=== PATIENT | female | born 1990 | race Caucasian/White ===

== ENCOUNTER 2016-09-17 16:06 | Emergency (ER) | payer OTHER ==
[~2016-09-17] VITALS: Ht 157.4 cm; Wt 52.2 kg
[~2016-09-17 16:06] MED LIST: AMBIEN10 M1 PO; AMOXICILLIN500 M2 PO; AMOXICILLIN500 MG PO; AMOXICILLIN875 MG PO; AMOXIL500 MG PO; ATIVAN1 MG PO; AUGMENTIN 875875 MG PO; BACTRIM DS 8001 TA1 PO; BUTORPHANOL10 MG/ML NAS; CIPRO500 MG PO; CLARITIN-D 12 H1 TAB PO; CLARITIN10 MG PO; CLINDAMYCIN HC300 MG PO; DIFLUCAN150 MG PO; DIPHENHYDR12.5 MG/5 PO; FLAGYL500 MG PO; FLEXERIL10 MG PO; FLONASE 0.05% 121 EA NAS; FLONASE ALLERG9.9 ML NAS; HYDROCODONE BIT1 T11 PO; KEFLEX500 MG PO; KENALOG0.1% TP; LEVOFLOXACIN500 MG PO; LIDOCAINE VISC100 ML MM; MACROBID100 M1 PO; MOTRIN600 MG PO; MOTRIN800 MG PO; NAPROSYN500 MG PO; NORCO 325 MG-51 TAB PO; NYSTATIN100000 U/M PO; OXYCODONE5 M1 PO; PAIN MED; PENICILLIN VK500 MG PO; PERIDEX118 ML MM; PHENERGAN25 M1 PO; PREDNISONE10 MG PO; PYRIDIUM200 MG PO; Peridex 473 ML473 ML PO; ROBAXIN750 MG PO; ROBITUSSIN AC 110 ML PO; SEPTRA DS 800 M1 TAB PO; STADOL INH; STADOL NAS; STADOL NS10 MG/ML NAS; SUBOXONE 8 MG-1 EACH SL; SUDAFED60 MG PO; TRAMADOL HCL50 MG PO; TRAMADOL50 MG PO; VENTOLIN H0.09 MG/AC INH; VICODIN ES 7501 TAB PO; ZITHROMAX Z PA250 MG PO; ZOFRAN ODT4 MG SL; ZOFRAN4 MG PO; ZYRTEC10 MG PO; Zofran4 MG PO
[2016-09-17] MEDS ORDERED: Peridex 473 ML473 ML PO (17:02)
[2016-09-17] MEDS ORDERED: LIDOCAINE VISC100 ML MM (17:02)
[2016-09-17] MEDS ORDERED: PENICILLIN-VK500 MG PO (17:02)
[2016-09-17] MEDS ORDERED: Motrin,Rufen800 MG PO (17:02)
== END 2016-09-17 17:17 | disposition home or self-care (01) ==
LOC: ED 16:06
DX: K08.89 Other specified disorders of teeth and supporting structures (principal); F17.200 Nicotine dependence, unspecified, uncomplicated

== ENCOUNTER 2016-10-13 12:36 | Emergency (ER) | payer OTHER ==
[~2016-10-13] VITALS: Ht 157.4 cm; Wt 52.2 kg
[~2016-10-13 12:36] MED LIST changes: +Motrin,Rufen800 MG PO; +PENICILLIN-VK500 MG PO
[2016-10-13] MEDS ORDERED: ROBITUSSIN AC 110 ML PO (13:01)
[2016-10-13] MEDS ORDERED: CLARITIN10 MG PO (13:01)
[2016-10-13] MEDS ORDERED: FLONASE ALLERG9.9 ML NAS (13:01)
[2016-10-13] MEDS ORDERED: PREDNISONE10 MG PO (13:01)
== END 2016-10-13 13:48 | disposition home or self-care (01) ==
LOC: ED 12:36
DX: B34.9 Viral infection, unspecified (principal); G43.909 Migraine, unspecified, not intractable, without status migrainosus; F17.200 Nicotine dependence, unspecified, uncomplicated; Z79.899 Other long term (current) drug therapy

== ENCOUNTER → 2016-10-23 | Outpatient (CLI) | payer OTHER ==
[2016-10-23 18:36] LABS: URINE AMPHETAMINES < 1000 (1000ng/ml); URINE BARBITURATES < 200 (200ng/ml); URINE COCAINE < 300 (300ng/ml)
== END | disposition home or self-care (01) ==
LOC: LAB 17:58
PROVIDERS: Internal Medicine
DX: F11.20 Opioid dependence, uncomplicated (principal)

== ENCOUNTER → 2016-10-29 | Emergency (ER) | payer OTHER | LOC: ED 16:22 | DX: R51 Headache (principal); Z53.21 Procedure and treatment not carried out due to patient leaving prior to being seen by health care provider ==

== ENCOUNTER 2016-12-26 15:33 | Emergency (ER) | payer OTHER ==
[~2016-12-26] VITALS: Ht 157.4 cm; Wt 52.6 kg
== END 2016-12-26 16:39 | disposition left against medical advice (07) ==
LOC: ED 15:33
DX: R10.32 Left lower quadrant pain (principal); G43.909 Migraine, unspecified, not intractable, without status migrainosus; Z79.899 Other long term (current) drug therapy

== ENCOUNTER 2017-07-23 14:31 | Emergency (ER) | payer OTHER ==
[~2017-07-23] VITALS: Ht 157.4 cm; Wt 52.2 kg
[2017-07-23 15:20] LABS: BASO % 0.3 % (0.0-1.0); HEMATOCRIT 38.8 % (37.0-47.0); HEMOGLOBIN 13.6 g/dl (12.0-16.0); LYMPH # 1.2 10*3/uL (1.3-4.4); LYMPH % 10.7 % (27.0-41.0); MEAN CORPUSCULAR HGB 31.2 pg (27.0-31.0); MEAN CORPUSCULAR HGB CONC 35.1 g/dl (33.0-37.0); MEAN PLATELET VOLUME 10.1 fl (9.6-12.3); MONO # 0.7 10*3/uL (0.1-1.0); MONO % 6.1 % (3.0-9.0); NEUT % 82.6 % (47.0-73.0); PLATELET COUNT AUTOMATED 289 10*3/uL (130-400); RED BLOOD COUNT 4.36 10*6/uL (4.10-5.10); RED CELL DISTRI WIDTH 12.3 % (0-14.5); WHITE BLOOD COUNT 10.9 10*3/uL (4.8-10.8)
[2017-07-23 15:41] LABS: ALBUMIN 4.7 gm/dl (3.1-4.5); ALKALINE PHOSPHATASE 68 U/L (45-117); BUN 15 mg/dl (7-24); CHLORIDE 101 mmol/L (98-107); CREATININE 0.81 mg/dL (0.55-1.02); LIPASE 75 U/L (73-393); POTASSIUM 3.1 mmol/L (3.5-5.1); SGOT/AST 10 IU/L (3-35); SGPT/ALT 17 U/L (12-78); SODIUM 136 mmol/L (136-145); TOTAL PROTEIN 8.2 gm/dL (6.4-8.2)
[2017-07-23] MEDS ORDERED: ZOFRAN ODT4 MG SL (17:30)
== END 2017-07-23 17:37 | disposition home or self-care (01) ==
LOC: ED 14:31
PROVIDERS: Physician Assistant
DX: K52.9 Noninfective gastroenteritis and colitis, unspecified (principal); F17.200 Nicotine dependence, unspecified, uncomplicated

== ENCOUNTER → 2017-07-26 | Outpatient (CLI) | payer OTHER ==
[2017-07-26 14:12] LABS: URINE AMPHETAMINES < 1000 (1000ng/ml); URINE BARBITURATES < 200 (200ng/ml); URINE BENZODIAZEPINES < 200 (200ng/ml); URINE CANNABINOIDS (THC) > 50 (50ng/ml); URINE COCAINE < 300 (300ng/ml); URINE METHADONE < 300 (300ng/ml); URINE OPIATES < 300 (300ng/ml)
[2017-07-26 14:14] LABS: URINE PHENCYCLIDINE < 25 (25ng/ml)
== END | disposition home or self-care (01) ==
LOC: LAB 13:40
PROVIDERS: Internal Medicine
DX: F11.20 Opioid dependence, uncomplicated (principal)

== ENCOUNTER → 2017-11-08 | Outpatient (CLI) | payer OTHER ==
[2017-11-08 17:08] LABS: URINE AMPHETAMINES < 1000 (1000ng/ml); URINE BARBITURATES < 200 (200ng/ml); URINE BENZODIAZEPINES < 200 (200ng/ml); URINE CANNABINOIDS (THC) > 50 (50ng/ml); URINE COCAINE < 300 (300ng/ml); URINE METHADONE < 300 (300ng/ml); URINE OPIATES < 300 (300ng/ml); URINE PHENCYCLIDINE < 25 (25ng/ml)
== END | disposition home or self-care (01) ==
LOC: LAB 16:28
PROVIDERS: Internal Medicine
DX: F11.20 Opioid dependence, uncomplicated (principal)

== ENCOUNTER 2018-01-16 19:59 | Emergency (ER) | payer OTHER ==
[~2018-01-16] VITALS: Ht 157.4 cm; Wt 45.4 kg
[2018-01-16 20:23] LABS: BILIRUBIN NEGATIVE (NEGATIVE); BLOOD NEGATIVE (NEGATIVE); CLARITY SL CLOUDY (CLEAR); COLOR YELLOW (YELLOW); GLUCOSE NEGATIVE (NEGATIVE); KETONE 2+ (NEGATIVE); LEUKO ESTERASE NEGATIVE (NEGATIVE); NITRITE NEGATIVE (NEGATIVE); SPECIFIC GRAVITY 1.015 (1.005-1.030); UROBILINOGEN 0.2 E.U./dl (0.2-1.0)
[2018-01-16 20:42] LABS: BACTERIA TRACE; WBC 0-2 wbc/hpf (0-5)
== END 2018-01-16 23:32 | disposition home or self-care (01) ==
LOC: ED 19:59
PROVIDERS: Nurse Practitioner
DX: B37.9 Candidiasis, unspecified (principal); N89.8 Other specified noninflammatory disorders of vagina; F17.200 Nicotine dependence, unspecified, uncomplicated; Z79.899 Other long term (current) drug therapy

== ENCOUNTER 2018-08-07 15:08 | Emergency (ER) | payer SELFPAY ==
[~2018-08-07] VITALS: Ht 157.4 cm; Wt 45.4 kg
[2018-08-07] MEDS ORDERED: ZITHROMAX250 MG PO ×2 (16:07→16:14)
== END 2018-08-07 16:17 | disposition home or self-care (01) ==
LOC: ED 15:08
DX: J20.9 Acute bronchitis, unspecified (principal); F17.200 Nicotine dependence, unspecified, uncomplicated; Z79.899 Other long term (current) drug therapy

== ENCOUNTER 2018-12-13 23:27 | Emergency (ER) | payer OTHER ==
[~2018-12-13] VITALS: Ht 157.4 cm; Wt 49.9 kg
[~2018-12-13 23:27] MED LIST changes: +ZITHROMAX250 MG PO
[2018-12-14] MEDS ORDERED: CLINDAMYCIN HC300 MG PO (00:02)
== END 2018-12-14 00:42 | disposition home or self-care (01) ==
LOC: ED 23:27
DX: L02.211 Cutaneous abscess of abdominal wall (principal); G43.909 Migraine, unspecified, not intractable, without status migrainosus; Z79.899 Other long term (current) drug therapy

== ENCOUNTER 2019-11-09 00:13 | Emergency (ER) | payer OTHER ==
[~2019-11-09] VITALS: Ht 157.4 cm; Wt 45.4 kg
[2019-11-09 00:47] LABS: CLARITY SL CLOUDY (CLEAR)
[2019-11-09 00:51] LABS: BILIRUBIN NEGATIVE (NEGATIVE); BLOOD TRACE-INTACT (NEGATIVE); GLUCOSE NEGATIVE (NEGATIVE); KETONE NEGATIVE (NEGATIVE)
[2019-11-09 00:52] LABS: COLOR ORANGE (YELLOW); LEUKO ESTERASE 2+ (NEGATIVE); NITRITE POSITIVE (NEGATIVE)
[2019-11-09 01:13] LABS: BACTERIA 1+
[2019-11-09] MEDS ORDERED: SEPTDS PO (01:30)
[2019-11-09] MEDS ORDERED: PYRIDIUM200 M1 PO (01:30)
== END 2019-11-09 01:56 | disposition home or self-care (01) ==
LOC: ED 00:13
PROVIDERS: Emergency Medicine
DX: N39.0 Urinary tract infection, site not specified (principal); G43.909 Migraine, unspecified, not intractable, without status migrainosus; F41.9 Anxiety disorder, unspecified; Z79.2 Long term (current) use of antibiotics; Z79.899 Other long term (current) drug therapy

== ENCOUNTER 2020-12-23 13:40 | Emergency (ER) | payer OTHER ==
[~2020-12-23] VITALS: Ht 157.4 cm; Wt 58.1 kg
[~2020-12-23 13:40] MED LIST changes: +PYRIDIUM200 M1 PO; +SEPTDS PO
[2020-12-23] MEDS ORDERED: CEPHALEXIN500 M1 PO (14:52)
== END 2020-12-23 15:04 | disposition home or self-care (01) ==
LOC: ED 13:40
DX: L03.221 Cellulitis of neck (principal); Z79.2 Long term (current) use of antibiotics; Z79.899 Other long term (current) drug therapy

== ENCOUNTER 2021-01-15 12:22 | Emergency (ER) | payer OTHER ==
[~2021-01-15] VITALS: Wt 59.0 kg
[~2021-01-15 12:22] MED LIST changes: +CEPHALEXIN500 M1 PO
[2021-01-15] MEDS ORDERED: DOXYCYCLINE100 M3 PO (12:35)
== END 2021-01-15 12:50 | disposition home or self-care (01) ==
LOC: ED 12:22
DX: L73.9 Follicular disorder, unspecified (principal); L03.221 Cellulitis of neck; F17.200 Nicotine dependence, unspecified, uncomplicated; Z79.2 Long term (current) use of antibiotics; Z79.899 Other long term (current) drug therapy

== ENCOUNTER 2021-01-24 10:23 | Emergency (ER) | payer OTHER ==
[~2021-01-24] VITALS: Wt 59.0 kg
[~2021-01-24 10:23] MED LIST changes: +DOXYCYCLINE100 M3 PO
[2021-01-24] MEDS ORDERED: CEPHALEXIN500 M1 PO (11:58)
[2021-01-24] MEDS ORDERED: MEDROL DOSEPAK4 MG PO (11:58)
== END 2021-01-24 12:35 | disposition home or self-care (01) ==
LOC: ED 10:23
DX: M54.6 Pain in thoracic spine (principal); R21 Rash and other nonspecific skin eruption; F17.200 Nicotine dependence, unspecified, uncomplicated; Z79.899 Other long term (current) drug therapy

== ENCOUNTER 2021-01-30 21:42 | Emergency (ER) | payer OTHER ==
[~2021-01-30] VITALS: Ht 157.4 cm; Wt 56.7 kg
[~2021-01-30 21:42] MED LIST changes: +MEDROL DOSEPAK4 MG PO
[2021-01-31] MEDS ORDERED: METHOCARBAMOL500 M1 PO (00:47)
[2021-01-31] MEDS ORDERED: IBUPROFEN600 MG PO (00:47)
== END 2021-01-31 01:00 | disposition home or self-care (01) ==
LOC: ED 21:42
DX: S29.011A Strain of muscle and tendon of front wall of thorax, initial encounter (principal); F17.200 Nicotine dependence, unspecified, uncomplicated; Z79.2 Long term (current) use of antibiotics; Z79.899 Other long term (current) drug therapy; X50.0XXA Overexertion from strenuous movement or load, initial encounter; Y93.89 Activity, other specified; Y92.89 Other specified places as the place of occurrence of the external cause; Y99.8 Other external cause status

== ENCOUNTER → 2021-03-10 | Outpatient (CLI) | payer OTHER ==
[~2021-03-10] MED LIST changes: +IBUPROFEN600 MG PO; +METHOCARBAMOL500 M1 PO
== END | disposition home or self-care (01) ==
LOC: COVID19 16:41
PROVIDERS: ATTEND Internal Medicine
DX: Z11.52 Encounter for screening for COVID-19 (principal)

== ENCOUNTER 2021-04-27 17:57 | Emergency (ER) | payer OTHER ==
[~2021-04-27] VITALS: Ht 157.5 cm; Wt 49.9 kg
[2021-04-27] MEDS ORDERED: PREDNISONE20 M1 PO ×2 (19:03)
[2021-04-27] MEDS ORDERED: CLINDAMYCIN HC300 MG PO ×2 (19:03)
[2021-04-27] MEDS ORDERED: ATHLETE'S FOO35.4 GM T ×2 (19:38)
== END 2021-04-27 19:26 | disposition home or self-care (01) ==
LOC: ED 17:57
DX: R21 Rash and other nonspecific skin eruption (principal); Z79.899 Other long term (current) drug therapy

== ENCOUNTER 2021-05-05 06:17 | Emergency (ER) | payer OTHER ==
[~2021-05-05] VITALS: Ht 157.5 cm; Wt 49.9 kg
[~2021-05-05 06:17] MED LIST changes: +ATHLETE'S FOO35.4 GM T; +PREDNISONE20 M1 PO
[2021-05-05] MEDS ORDERED: AMOXICILLIN500 M2 PO (06:48)
[2021-05-05] MEDS ORDERED: CETIRIZINE HYDR10 MG PO (06:48)
[2021-05-05 06:58] LABS: BASO % 0.7 % (0.0-1.0); EOS # 0.2 10*3/uL (0.0-0.4); EOS % 3.3 % (1.0-4.0); HEMATOCRIT 39.6 % (37.0-47.0); LYMPH # 1.8 10*3/uL (1.3-4.4); LYMPH % 32.3 % (27.0-41.0); MEAN CELL VOLUME 95.9 fl (81.0-99.0); MEAN CORPUSCULAR HGB 31.5 pg (27.0-31.0); MEAN CORPUSCULAR HGB CONC 32.8 g/dl (33.0-37.0); MEAN PLATELET VOLUME 8.9 fl (9.6-12.3); MONO % 17.6 % (3.0-9.0); NEUT # 2.6 10*3/uL (2.3-7.9); NEUT % 45.7 % (47.0-73.0); PLATELET COUNT AUTOMATED 390 10*3/uL (130-400); RED BLOOD COUNT 4.13 10*6/uL (4.10-5.10); RED CELL DISTRI WIDTH 12.5 % (0-14.5); WHITE BLOOD COUNT 5.7 10*3/uL (4.8-10.8)
[2021-05-05 07:11] LABS: BILIRUBIN Negative (Negative); BLOOD Trace-Lysed (Negative); CLARITY Cloudy (Clear); COLOR Yellow (Yellow); GLUCOSE Negative (Negative); KETONE Trace (Negative); LEUKO ESTERASE Negative (Negative); NITRITE Negative (Negative); SPECIFIC GRAVITY >= 1.030 (1.001-1.030); UROBILINOGEN 0.2 E.U./dl (0.0-1.0)
[2021-05-05 07:12] LABS: ALBUMIN 3.7 gm/dl (3.1-4.5); ALKALINE PHOSPHATASE 82 U/L (45-117); BUN 20 mg/dl (7-24); CHLORIDE 109 mmol/L (98-107); CREATININE 1.01 mg/dL (0.55-1.02); POTASSIUM 4.2 mmol/L (3.5-5.1); SGOT/AST 13 IU/L (3-35); SGPT/ALT 27 U/L (12-78); SODIUM 141 mmol/L (136-145); TOTAL PROTEIN 6.8 gm/dL (6.4-8.2)
[2021-05-05 07:18] LABS: URINE AMPHETAMINES > 1000 (1000ng/ml); URINE BARBITURATES < 200 (200ng/ml); URINE BENZODIAZEPINES < 200 (200ng/ml); URINE CANNABINOIDS (THC) > 50 (50ng/ml); URINE COCAINE < 300 (300ng/ml); URINE METHADONE < 300 (300ng/ml); URINE OPIATES < 300 (300ng/ml)
[2021-05-05 07:20] LABS: URINE PHENCYCLIDINE < 25 (25ng/ml)
[2021-05-05 07:24] LABS: BACTERIA TRACE; MUCOUS 2+
== END 2021-05-05 07:50 | disposition home or self-care (01) ==
LOC: ED 06:17
PROVIDERS: Internal Medicine
DX: F45.8 Other somatoform disorders (principal); F15.90 Other stimulant use, unspecified, uncomplicated

== ENCOUNTER 2021-08-05 21:01 | Emergency (ER) | payer OTHER ==
[~2021-08-05 21:01] MED LIST changes: +CETIRIZINE HYDR10 MG PO
[2021-08-05] MEDS ORDERED: CEPHALEXIN500 M1 PO (23:09)
== END 2021-08-05 23:16 | disposition left against medical advice (07) ==
LOC: ED 21:01
DX: T78.40XA Allergy, unspecified, initial encounter (principal); L73.9 Follicular disorder, unspecified; F17.200 Nicotine dependence, unspecified, uncomplicated; Z79.899 Other long term (current) drug therapy; X58.XXXA Exposure to other specified factors, initial encounter

== ENCOUNTER 2021-08-25 02:31 | Emergency (ER) | payer OTHER ==
[~2021-08-25] VITALS: Ht 157.4 cm; Wt 54.4 kg
[2021-08-25] MEDS ORDERED: BUSPAR15 MG PO (02:44)
[2021-08-25 03:06] LABS: BILIRUBIN Negative (Negative); BLOOD 3+ (Negative); CLARITY Clear (Clear); COLOR Yellow (Yellow); GLUCOSE Negative (Negative); KETONE 2+ (Negative); LEUKO ESTERASE Negative (Negative); NITRITE Negative (Negative); PH 5.5 (4.5-8.0); SPECIFIC GRAVITY >= 1.030 (1.001-1.030)
[2021-08-25 03:36] LABS: EPITHELIAL CELLS 31-40; RBC 41-50 rbc/hpf (0-2)
[2021-08-25 03:37] LABS: BACTERIA TRACE
[2021-08-25] MEDS ORDERED: SEPTDS PO (13:00)
== END 2021-08-25 03:47 | disposition home or self-care (01) ==
LOC: ED 02:31
PROVIDERS: Internal Medicine
DX: L30.9 Dermatitis, unspecified (principal); R10.2 Pelvic and perineal pain; Z79.899 Other long term (current) drug therapy

== ENCOUNTER 2021-09-19 23:55 | Emergency (ER) | payer OTHER ==
[~2021-09-19] VITALS: Ht 157.4 cm; Wt 54.4 kg
[~2021-09-19 23:55] MED LIST changes: +BUSPAR15 MG PO
[2021-09-20 00:29] LABS: BILIRUBIN 1+ (Negative); BLOOD 3+ (Negative); CLARITY Cloudy (Clear); COLOR Orange (Yellow); GLUCOSE Negative (Negative); KETONE Negative (Negative); LEUKO ESTERASE 2+ (Negative); NITRITE Negative (Negative); PH 5.5 (4.5-8.0); SPECIFIC GRAVITY >= 1.030 (1.001-1.030)
[2021-09-20 00:44] LABS: RBC TNTC rbc/hpf (0-2)
[2021-09-20] MEDS ORDERED: CEPHALEXIN500 M1 PO (02:20)
== END 2021-09-20 02:31 | disposition home or self-care (01) ==
LOC: ED 23:55
PROVIDERS: Emergency Medicine
DX: N39.0 Urinary tract infection, site not specified (principal); F17.200 Nicotine dependence, unspecified, uncomplicated; Z79.899 Other long term (current) drug therapy

== ENCOUNTER 2021-10-23 10:36 | Emergency (ER) | payer OTHER ==
[~2021-10-23] VITALS: Ht 157.4 cm; Wt 56.7 kg
[2021-10-23] MEDS ORDERED: GABAPENTIN100 M2 PO (10:48)
[2021-10-23] MEDS ORDERED: LAMOTRIGINE25 M1 PO (10:48)
[2021-10-23] MEDS ORDERED: ZIPRASIDONE HCL60 M1 PO (10:48)
== END 2021-10-23 13:38 | disposition left against medical advice (07) ==
LOC: ED 10:36
DX: Z53.21 Procedure and treatment not carried out due to patient leaving prior to being seen by health care provider (principal)

== ENCOUNTER 2021-11-03 12:06 | Emergency (ER) | payer OTHER ==
[~2021-11-03] VITALS: Ht 157.4 cm; Wt 45.4 kg
[~2021-11-03 12:06] MED LIST changes: +GABAPENTIN100 M2 PO; +LAMOTRIGINE25 M1 PO; +ZIPRASIDONE HCL60 M1 PO
[2021-11-03 12:43] LABS: BASO % 0.7 % (0.0-1.0); EOS # 0.1 10*3/uL (0.0-0.4); HEMATOCRIT 40.8 % (37.0-47.0); LYMPH # 2.2 10*3/uL (1.3-4.4); LYMPH % 37.8 % (27.0-41.0); MEAN CELL VOLUME 93.6 fl (81.0-99.0); MEAN CORPUSCULAR HGB 32.1 pg (27.0-31.0); MEAN CORPUSCULAR HGB CONC 34.3 g/dl (33.0-37.0); MEAN PLATELET VOLUME 9.5 fl (9.6-12.3); MONO # 0.6 10*3/uL (0.1-1.0); MONO % 11.1 % (3.0-9.0); NEUT # 2.9 10*3/uL (2.3-7.9); NEUT % 49.4 % (47.0-73.0); PLATELET COUNT AUTOMATED 354 10*3/uL (130-400); RED BLOOD COUNT 4.36 10*6/uL (4.10-5.10); WHITE BLOOD COUNT 5.8 10*3/uL (4.8-10.8)
[2021-11-03 12:43] LABS: BILIRUBIN 1+ (Negative); BLOOD Trace-Intact (Negative); CLARITY Turbid (Clear); COLOR Dark Yellow (Yellow); GLUCOSE Negative (Negative); KETONE Trace (Negative); LEUKO ESTERASE 1+ (Negative); NITRITE Negative (Negative); PH 6.5 (4.5-8.0); SPECIFIC GRAVITY 1.025 (1.001-1.030)
[2021-11-03 12:52] LABS: URINE AMPHETAMINES > 1000 (1000ng/ml); URINE BARBITURATES < 200 (200ng/ml); URINE BENZODIAZEPINES < 200 (200ng/ml); URINE CANNABINOIDS (THC) > 50 (50ng/ml); URINE COCAINE < 300 (300ng/ml); URINE METHADONE < 300 (300ng/ml); URINE OPIATES < 300 (300ng/ml); URINE PHENCYCLIDINE < 25 (25ng/ml)
[2021-11-03 12:58] LABS: BACTERIA 3+; EPITHELIAL CELLS 51-100; MUCOUS 2+
[2021-11-03 12:59] LABS: ALKALINE PHOSPHATASE 60 U/L (45-117); BUN 12 mg/dl (7-24); CHLORIDE 111 mmol/L (98-107); CREATININE 0.93 mg/dL (0.55-1.02); POTASSIUM 3.4 mmol/L (3.5-5.1); SGOT/AST 10 IU/L (3-35); SGPT/ALT 26 U/L (12-78); SODIUM 139 mmol/L (136-145); TOTAL PROTEIN 7.4 gm/dL (6.4-8.2)
[2021-11-03] MEDS ORDERED: MACROBID100 M1 PO (13:42)
== END 2021-11-03 13:45 | disposition home or self-care (01) ==
LOC: ED 12:06
PROVIDERS: Nurse Practitioner Family
DX: N39.0 Urinary tract infection, site not specified (principal); Z79.899 Other long term (current) drug therapy

== ENCOUNTER 2021-11-15 18:19 | Emergency (ER) | payer OTHER ==
[~2021-11-15] VITALS: Wt 54.4 kg
[2021-11-15] MEDS ORDERED: DICYCLOMINE HCL10 MG PO (18:39)
[2021-11-15] MEDS ORDERED: SEPTDS PO (19:13)
== END 2021-11-15 19:26 | disposition home or self-care (01) ==
LOC: ED 18:19
DX: L70.0 Acne vulgaris (principal)

== ENCOUNTER 2021-12-26 10:51 | Emergency (ER) | payer OTHER ==
[~2021-12-26 10:51] MED LIST changes: +DICYCLOMINE HCL10 MG PO
[2021-12-26] MEDS ORDERED: [UNRECOGNIZED DRUG - OTHER] PO (12:33)
== END 2021-12-26 12:56 | disposition home or self-care (01) ==
LOC: ED 10:51
DX: N76.0 Acute vaginitis (principal); B89 Unspecified parasitic disease; Z79.899 Other long term (current) drug therapy

== ENCOUNTER 2022-01-27 17:54 | Emergency (ER) | payer OTHER ==
[~2022-01-27] VITALS: Ht 157.4 cm; Wt 45.4 kg
[~2022-01-27 17:54] MED LIST changes: +[UNRECOGNIZED DRUG - OTHER] PO
[2022-01-27 19:48] LABS: BASO % 0.6 % (0.0-1.0); EOS # 0.1 10*3/uL (0.0-0.4); EOS % 1.5 % (1.0-4.0); HEMATOCRIT 35.3 % (37.0-47.0); LYMPH # 1.5 10*3/uL (1.3-4.4); LYMPH % 31.7 % (27.0-41.0); MEAN CELL VOLUME 91.9 fl (81.0-99.0); MEAN CORPUSCULAR HGB 31.8 pg (27.0-31.0); MEAN CORPUSCULAR HGB CONC 34.6 g/dl (33.0-37.0); MEAN PLATELET VOLUME 9.9 fl (9.6-12.3); MONO # 0.5 10*3/uL (0.1-1.0); MONO % 10.5 % (3.0-9.0); NEUT # 2.6 10*3/uL (2.3-7.9); NEUT % 55.7 % (47.0-73.0); PLATELET COUNT AUTOMATED 293 10*3/uL (130-400); RED BLOOD COUNT 3.84 10*6/uL (4.10-5.10); RED CELL DISTRI WIDTH 11.8 % (0-14.5); WHITE BLOOD COUNT 4.7 10*3/uL (4.8-10.8)
[2022-01-27 20:10] LABS: ALKALINE PHOSPHATASE 52 U/L (45-117); BUN 12 mg/dl (7-24); CHLORIDE 109 mmol/L (98-107); CREATININE 0.76 mg/dL (0.55-1.02); LIPASE 68 U/L (73-393); SGOT/AST 10 IU/L (3-35); SGPT/ALT 21 U/L (12-78); SODIUM 140 mmol/L (136-145); TOTAL PROTEIN 6.8 gm/dL (6.4-8.2)
[2022-01-27] MEDS ORDERED: DOXYCYCLINE HY100 M3 PO (21:42)
[2022-01-27] MEDS ORDERED: CITROMA296 ML PO (22:59)
[2022-01-28 00:05] LABS: BILIRUBIN Negative (Negative); BLOOD 3+ (Negative); CLARITY Clear (Clear); COLOR Yellow (Yellow); GLUCOSE Negative (Negative); KETONE Trace (Negative); LEUKO ESTERASE Negative (Negative); NITRITE Negative (Negative); PH 7.5 (4.5-8.0); SPECIFIC GRAVITY >= 1.030 (1.001-1.030)
== END 2022-01-27 23:32 | disposition home or self-care (01) ==
LOC: ED 17:54
PROVIDERS: Physician Assistant
DX: K59.00 Constipation, unspecified (principal); Z20.2 Contact with and (suspected) exposure to infections with a predominantly sexual mode of transmission; Z79.899 Other long term (current) drug therapy

== ENCOUNTER → 2022-02-08 | Outpatient (CLI) | payer OTHER ==
[~2022-02-08] MED LIST changes: +CITROMA296 ML PO; +DOXYCYCLINE HY100 M3 PO
[2022-02-08 11:53] LABS: VITAMIN D, 25-HYDROXY 23.7 ng/mL (30-100)
== END | disposition home or self-care (01) ==
LOC: LAB 10:35
PROVIDERS: ATTEND Psychiatry & Neurology Psychiatry
DX: R53.83 Other fatigue (principal)

== ENCOUNTER 2022-03-27 18:42 | Emergency (ER) | payer OTHER ==
[~2022-03-27] VITALS: Ht 157.4 cm; Wt 49.9 kg
[2022-03-27 19:32] LABS: BASO % 0.7 % (0.0-1.0); EOS # 0.2 10*3/uL (0.0-0.4); EOS % 2.8 % (1.0-4.0); HEMATOCRIT 37.7 % (37.0-47.0); LYMPH % 34.7 % (27.0-41.0); MEAN CELL VOLUME 96.2 fl (81.0-99.0); MEAN CORPUSCULAR HGB 32.4 pg (27.0-31.0); MEAN CORPUSCULAR HGB CONC 33.7 g/dl (33.0-37.0); MEAN PLATELET VOLUME 9.7 fl (9.6-12.3); MONO # 0.7 10*3/uL (0.1-1.0); MONO % 11.3 % (3.0-9.0); NEUT # 2.9 10*3/uL (2.3-7.9); NEUT % 50.3 % (47.0-73.0); PLATELET COUNT AUTOMATED 296 10*3/uL (130-400); RED BLOOD COUNT 3.92 10*6/uL (4.10-5.10); RED CELL DISTRI WIDTH 12.6 % (0-14.5); WHITE BLOOD COUNT 5.8 10*3/uL (4.8-10.8)
[2022-03-27 19:49] LABS: ALKALINE PHOSPHATASE 61 U/L (45-117); BUN 14 mg/dl (7-24); CHLORIDE 108 mmol/L (98-107); CREATININE 0.84 mg/dL (0.55-1.02); POTASSIUM 3.8 mmol/L (3.5-5.1); SGOT/AST 13 IU/L (3-35); SGPT/ALT 29 U/L (12-78); SODIUM 142 mmol/L (136-145)
== END 2022-03-27 20:24 | disposition left against medical advice (07) ==
LOC: ED 18:42
PROVIDERS: Physician Assistant
DX: R30.9 Painful micturition, unspecified (principal); Z79.899 Other long term (current) drug therapy

== ENCOUNTER 2022-03-29 15:11 | Emergency (ER) | payer OTHER ==
[~2022-03-29] VITALS: Ht 157.4 cm; Wt 49.9 kg
== END 2022-03-29 16:20 | disposition home or self-care (01) ==
LOC: ED 15:11
DX: Z00.00 Encounter for general adult medical examination without abnormal findings (principal); Z79.899 Other long term (current) drug therapy

== ENCOUNTER 2022-06-07 06:14 | Emergency (ER) | payer OTHER ==
[~2022-06-07] VITALS: Wt 59.1 kg
== END 2022-06-07 06:43 | disposition left against medical advice (07) ==
LOC: ED 06:14
DX: K02.9 Dental caries, unspecified (principal); Z79.899 Other long term (current) drug therapy

== ENCOUNTER 2022-07-17 17:59 | Emergency (ER) | payer OTHER ==
[~2022-07-17] VITALS: Wt 49.9 kg
[2022-07-17] MEDS ORDERED: TRILEPTAL300 MG PO (19:20)
== END 2022-07-17 22:29 | disposition home or self-care (01) ==
LOC: ED 17:59
DX: S30.0XXA Contusion of lower back and pelvis, initial encounter (principal); Z79.899 Other long term (current) drug therapy; W18.39XA Other fall on same level, initial encounter; Y93.89 Activity, other specified; Y92.89 Other specified places as the place of occurrence of the external cause; Y99.8 Other external cause status

== ENCOUNTER 2022-08-08 20:53 | Emergency (ER) | payer OTHER ==
[~2022-08-08] VITALS: Ht 160 cm; Wt 51.7 kg
[~2022-08-08 20:53] MED LIST changes: +TRILEPTAL300 MG PO
[2022-08-08] MEDS ORDERED: QUETIAPINE FUMA25 MG PO (20:59)
[2022-08-08 22:19] LABS: BILIRUBIN Negative (Negative); BLOOD Negative (Negative); CLARITY Cloudy (Clear); COLOR Yellow (Yellow); GLUCOSE Negative (Negative); KETONE 1+ (Negative); LEUKO ESTERASE Negative (Negative); NITRITE Negative (Negative); PH 7.5 (4.5-8.0); UROBILINOGEN 0.2 E.U./dl (0.0-1.0)
[2022-08-08 22:20] LABS: EPITHELIAL CELLS 21-30; RBC 0-2 rbc/hpf (0-2); WBC 0-2 wbc/hpf (0-5)
[2022-08-08] MEDS ORDERED: METRONIDAZOLE500 M1 PO (23:47)
== END 2022-08-08 23:55 | disposition home or self-care (01) ==
LOC: ED 20:53
PROVIDERS: Emergency Medicine
DX: S09.90XA Unspecified injury of head, initial encounter (principal); M25.552 Pain in left hip; Z79.899 Other long term (current) drug therapy; F17.200 Nicotine dependence, unspecified, uncomplicated; W17.89XA Other fall from one level to another, initial encounter; Y93.89 Activity, other specified; Y92.89 Other specified places as the place of occurrence of the external cause; Y99.8 Other external cause status

== ENCOUNTER 2023-01-04 15:25 | Inpatient (IN) | payer OTHER ==
[~2023-01-04] VITALS: Ht 162.5 cm; Wt 65.9 kg
[~2023-01-04 15:25] MED LIST changes: -GABAPENTIN100 M2 PO; +METRONIDAZOLE500 M1 PO; +NEURONTIN600 MG PO; +SEROQUEL50 MG PO
[2023-01-04 15:37] VITALS: BP 115/66
[2023-01-04] MEDS ORDERED: VRAYLAR1.5 MG PO (16:40)
[2023-01-04] MEDS ORDERED: AUSTEDO XR12 MG PO (16:41)
[2023-01-04 17:03] LABS: BASO % 0.7 % (0.0-1.0); EOS # 0.2 10*3/uL (0.0-0.4); EOS % 2.4 % (1.0-4.0); HEMATOCRIT 41.3 % (37.0-47.0); LYMPH # 1.7 10*3/uL (1.3-4.4); LYMPH % 27.4 % (27.0-41.0); MEAN CELL VOLUME 94.5 fl (81.0-99.0); MEAN CORPUSCULAR HGB 31.6 pg (27.0-31.0); MEAN CORPUSCULAR HGB CONC 33.4 g/dl (33.0-37.0); MEAN PLATELET VOLUME 9.2 fl (9.6-12.3); MONO # 0.6 10*3/uL (0.1-1.0); NEUT # 3.7 10*3/uL (2.3-7.9); NEUT % 60.3 % (47.0-73.0); PLATELET COUNT AUTOMATED 304 10*3/uL (130-400); RED BLOOD COUNT 4.37 10*6/uL (4.10-5.10); RED CELL DISTRI WIDTH 12.3 % (0-14.5); WHITE BLOOD COUNT 6.1 10*3/uL (4.8-10.8)
[2023-01-04 17:23] LABS: BILIRUBIN Negative (Negative); BLOOD Negative (Negative); CLARITY Cloudy (Clear); COLOR Yellow (Yellow); GLUCOSE Negative (Negative); KETONE Trace (Negative); LEUKO ESTERASE Negative (Negative); NITRITE Negative (Negative); UROBILINOGEN 0.2 E.U./dl (0.0-1.0)
[2023-01-04 17:31] LABS: URINE AMPHETAMINES Positive (1000ng/ml); URINE BARBITURATES Negative (200ng/ml); URINE BENZODIAZEPINES Negative (200ng/ml); URINE CANNABINOIDS (THC) Negative (50ng/ml); URINE COCAINE Negative (300ng/ml); URINE METHADONE Negative (300ng/ml); URINE OPIATES Negative (300ng/ml); URINE PHENCYCLIDINE Negative (25ng/ml)
[2023-01-04 17:31] LABS: ALKALINE PHOSPHATASE 63 U/L (46-116); BUN 12 mg/dl (9-23); CHLORIDE 105 mmol/L (98-107); POTASSIUM 3.5 mmol/L (3.4-5.1); SGPT/ALT 14 U/L (10-49)
[2023-01-04 17:35] LABS: BETA-HCG, QUANT < 3.0 mIU/mL (3-10)
[2023-01-04 17:37] LABS: BACTERIA TRACE; RBC 0-2 rbc/hpf (0-2); WBC 0-2 wbc/hpf (0-5)
[2023-01-04 18:48] VITALS: BP 109/79
[2023-01-04 20:00] VITALS: BP 114/67
[2023-01-05] VITALS: BP 106/78
[2023-01-05 05:40] LABS: ALKALINE PHOSPHATASE 60 U/L (46-116); BUN 12 mg/dl (9-23); CHLORIDE 105 mmol/L (98-107); CHOLESTEROL 145 mg/dL (<200); FREE T4 0.74 ng/dl (0.89-1.76); LDL CHOLESTEROL 68 mg/dL (9-159); POTASSIUM 3.7 mmol/L (3.4-5.1); SGPT/ALT 10 U/L (10-49); TOTAL PROTEIN 6.2 gm/dL (6.0-8.0); TRIGLYCERIDES 75 mg/dl (<150)
[2023-01-05 05:41] LABS: VITAMIN D, 25-HYDROXY 25.4 ng/mL (30-100)
[2023-01-05 06:17] LABS: BASO % 0.6 % (0.0-1.0); EOS # 0.2 10*3/uL (0.0-0.4); EOS % 4.6 % (1.0-4.0); HEMATOCRIT 38.3 % (37.0-47.0); LYMPH # 2.4 10*3/uL (1.3-4.4); LYMPH % 46.5 % (27.0-41.0); MEAN CORPUSCULAR HGB 32.6 pg (27.0-31.0); MEAN CORPUSCULAR HGB CONC 33.9 g/dl (33.0-37.0); MEAN PLATELET VOLUME 9.9 fl (9.6-12.3); MONO # 0.6 10*3/uL (0.1-1.0); MONO % 12.2 % (3.0-9.0); NEUT # 1.9 10*3/uL (2.3-7.9); NEUT % 35.9 % (47.0-73.0); PLATELET COUNT AUTOMATED 265 10*3/uL (130-400); RED BLOOD COUNT 3.99 10*6/uL (4.10-5.10); RED CELL DISTRI WIDTH 12.6 % (0-14.5); WHITE BLOOD COUNT 5.3 10*3/uL (4.8-10.8)
[2023-01-05 08:00] VITALS: BP 126/64
[2023-01-05 12:00] VITALS: BP 132/68
[2023-01-05 16:03] VITALS: BP 116/79
[2023-01-05 20:00] VITALS: BP 117/59
[2023-01-06] VITALS: BP 113/62
[2023-01-06 08:00] VITALS: BP 113/96
[2023-01-06 12:00] VITALS: BP 117/71
[2023-01-06 16:00] VITALS: BP 110/58
[2023-01-06 20:00] VITALS: BP 117/67
[2023-01-07] VITALS: BP 110/58
[2023-01-07 08:00] VITALS: BP 115/74
[2023-01-07] MEDS ORDERED: AMOX-CLAV 875-1 EACH PO (09:57)
== END 2023-01-07 10:10 | disposition home or self-care (01) | DRG 776 ==
LOC: ED 15:25 → EDHOLD 16:19 → 5E 16:19
PROVIDERS: Emergency Medicine; Student in an Organized Health Care Education/Training Program; ADMIT Student in an Organized Health Care Education/Training Program; ATTEND Student in an Organized Health Care Education/Training Program
DX: F15.23 Other stimulant dependence with withdrawal (principal); F29 Unspecified psychosis not due to a substance or known physiological condition; F42.9 Obsessive-compulsive disorder, unspecified; G43.909 Migraine, unspecified, not intractable, without status migrainosus; R00.0 Tachycardia, unspecified; E55.9 Vitamin D deficiency, unspecified; K04.7 Periapical abscess without sinus; Z80.8 Family history of malignant neoplasm of other organs or systems; Z81.8 Family history of other mental and behavioral disorders; Z79.899 Other long term (current) drug therapy; Z71.6 Tobacco abuse counseling

== ENCOUNTER 2023-01-16 22:53 | Emergency (ER) | payer OTHER ==
[~2023-01-16 22:53] MED LIST changes: +AMOX-CLAV 875-1 EACH PO; +AUSTEDO XR12 MG PO; +VRAYLAR1.5 MG PO
[2023-01-17 00:02] LABS: BASO # 0.1 10*3/uL (0.0-0.1); BASO % 0.6 % (0.0-1.0); EOS # 0.1 10*3/uL (0.0-0.4); EOS % 1.7 % (1.0-4.0); HEMATOCRIT 36.2 % (37.0-47.0); MEAN CELL VOLUME 94.8 fl (81.0-99.0); MEAN CORPUSCULAR HGB 31.7 pg (27.0-31.0); MEAN CORPUSCULAR HGB CONC 33.4 g/dl (33.0-37.0); MEAN PLATELET VOLUME 8.9 fl (9.6-12.3); MONO # 0.9 10*3/uL (0.1-1.0); MONO % 10.6 % (3.0-9.0); NEUT # 5.2 10*3/uL (2.3-7.9); PLATELET COUNT AUTOMATED 320 10*3/uL (130-400); RED BLOOD COUNT 3.82 10*6/uL (4.10-5.10); RED CELL DISTRI WIDTH 12.6 % (0-14.5); WHITE BLOOD COUNT 8.2 10*3/uL (4.8-10.8)
[2023-01-17 00:15] LABS: ACT PARTIAL THROMBO TIME 26.9 SECONDS (20.0-32.1)
[2023-01-17 00:30] LABS: ALKALINE PHOSPHATASE 64 U/L (46-116); BUN 11 mg/dl (9-23); CHLORIDE 108 mmol/L (98-107); LIPASE 32 U/L (12-53); POTASSIUM 3.8 mmol/L (3.4-5.1); SGPT/ALT 14 U/L (10-49); TOTAL PROTEIN 6.6 gm/dL (6.0-8.0)
[2023-01-17] MEDS ORDERED: AMOX-CLAV 875-1 EACH PO (02:22)
== END 2023-01-17 02:38 | disposition home or self-care (01) ==
LOC: ED 22:53
PROVIDERS: Internal Medicine
DX: S00.83XA Contusion of other part of head, initial encounter (principal); G43.909 Migraine, unspecified, not intractable, without status migrainosus; F41.9 Anxiety disorder, unspecified; Z98.890 Other specified postprocedural states; F15.10 Other stimulant abuse, uncomplicated; X58.XXXA Exposure to other specified factors, initial encounter; Y93.89 Activity, other specified; Y92.89 Other specified places as the place of occurrence of the external cause; Y99.8 Other external cause status

== ENCOUNTER 2023-04-15 13:17 | Emergency (ER) | payer OTHER ==
[~2023-04-15] VITALS: Wt 77.1 kg
[2023-04-15] MEDS ORDERED: CLINDAMYCIN HC300 MG PO (13:34)
== END 2023-04-15 13:51 | disposition home or self-care (01) ==
LOC: ED 13:17
DX: L03.221 Cellulitis of neck (principal); R21 Rash and other nonspecific skin eruption; G43.909 Migraine, unspecified, not intractable, without status migrainosus; F41.9 Anxiety disorder, unspecified; Z98.890 Other specified postprocedural states

== ENCOUNTER 2023-09-30 11:37 | Emergency (ER) | payer OTHER ==
[~2023-09-30] VITALS: Ht 157.4 cm; Wt 68.0 kg
[2023-09-30] MEDS ORDERED: MELOXICAM15 MG PO (15:24)
[2023-09-30] MEDS ORDERED: ACETAMINOPHEN 325 MG TAB PO ONE (15:25)
== END 2023-09-30 15:51 | disposition home or self-care (01) ==
LOC: ED 11:37
DX: S52.612A Displaced fracture of left ulna styloid process, initial encounter for closed fracture (principal); S52.502A Unspecified fracture of the lower end of left radius, initial encounter for closed fracture; G43.909 Migraine, unspecified, not intractable, without status migrainosus; F41.9 Anxiety disorder, unspecified; Z87.891 Personal history of nicotine dependence; W11.XXXA Fall on and from ladder, initial encounter; Y93.89 Activity, other specified; Y92.89 Other specified places as the place of occurrence of the external cause; Y99.8 Other external cause status